=== PATIENT | female | born 1960 | race Two or more races ===

== ENCOUNTER 2025-06-22 08:42 | Inpatient (IN) | payer OTHER ==
[~2025-06-22] VITALS: Ht 152.4 cm; Wt 71.7 kg
--- NOTE | 2025-06-22 08:54 | NUR ---
PTE ALERTA Y ORIENTADA X3, REFIERE SER PTE DEL DR.MUNOZ FAY QUE LA ENVIO PARA ER PORQUE NO PUEDE ORINAR TEODORA Y TIENE DOLOR PELVICO. PTE REFIERE MICHAEL ESTADO TOMANDO ANTIBIOTICOS TALITA NO MICHAEL CROW. SE VINI SV Y SE UBICA.
[2025-06-22] MEDS ORDERED: PHENAZOPYRIDINE HCL 100 MG TABLET PO ONE ×2 (09:07→09:15)
[2025-06-22] MEDS ORDERED: 0.9 % SODIUM CHLORIDE 1,000 ML IV SCH ×2 (09:15→18:45)
--- NOTE | 2025-06-22 09:33 | NUR ---
SE ORIENTA PTE SOBRE TX A SEGUIR, LA MISMA REFIERE ENTENDER. SE GREG MUESTRA DE LAB, SE CANALIZA Y SE ADMINISTRA MED ISIDRO ORDEN MEDICA
[2025-06-22 09:35] LABS: BASO % 0.7 % (0.1-1.2); EOS # 0.13 (0.04-0.54); EOS % 1.7 % (0.7-7.0); LYMPH # 2.04 (1.18-3.74); LYMPH % 27.0 % (19.3-53.1); MEAN PLATELET VOLUME 9.90 fl (9.4-12.4); MONO # 0.34 (0.24-0.82); MONO % 4.5 % (4.7-12.5); NEUT # 4.99 (1.56-6.13); NEUT % 66.0 % (34.0-71.1); RED CELL DISTRIBUTION WIDTH 14.6 % (11.6-14.4)
[2025-06-22 10:17] LABS: URINE APPEARANCE Cloudy; URINE BILIRRUBIN Small (NEGATIVE); URINE BLOOD Negative; URINE COLOR Orange; URINE GLUCOSE Negative (NEGATIVE); URINE KETONE Trace (NEGATIVE); URINE LEUKOCYTE Moderate; URINE NITRATE Positive; URINE PROTEIN 30 (NEGATIVE); URINE UROBILINOGEN 1.0 E.U./dl
[2025-06-22 10:23] LABS: URINE BACTERIA 3409.1 uL (0.0-1933); URINE CAST 6.89 uL (0.0-1.40); URINE EPITHELIAL CELLS 44.4 uL (0.0-38.8); URINE RBC 11.2 uL (0.0-20.8); URINE WBC 237.8 uL (0.0-23.2)
[2025-06-22 10:41] LABS: BUN CREA RATIO 15.0 (7.0-25.0); CREATININE SERUM 0.97 mg/dL (0.55-1.02); GFR 57.63; GLUCOSE FASTING 96.0 mg/dL (65-100); OSMOLALITY SERUM 286.0 MOSM/KG (275-295)
[2025-06-22 11:26] LABS: URINE MUCUS MODERATE
[2025-06-22] MEDS ORDERED: MEROPENEM 1,000 MG VIAL IV ONE (12:00)
[2025-06-22] MEDS ORDERED: PHENAZOPYRIDINE HCL 100 MG TABLET PO SCH (18:34)
[2025-06-22] MEDS ORDERED: ACETAMINOPHEN 500 MG GEL..CAP PO PRN (18:45)
[2025-06-22] MEDS ORDERED: KETOROLAC TROMETHAMINE 15 MG VIAL IU ONE (18:45)
[2025-06-22 18:59] VITALS: BP 130/80
[2025-06-22 21:11] LABS: INR 0.94
[2025-06-22 22:02] VITALS: BP 105/66
[2025-06-23] VITALS (8 sets, daily range): BP systolic 95–154; BP diastolic 56–72; O2SAT 93–98
[2025-06-23] MEDS ORDERED: MEROPENEM 1,000 MG in 0.9 % SODIUM CHLORIDE 100 ML IV SCH (01:00)
[2025-06-23] MEDS ORDERED: MEROPENEM 500 MG in 0.9 % SODIUM CHLORIDE 50 ML IV SCH (08:00)
[2025-06-23] MEDS ORDERED: ROSUVASTATIN CALCIUM 10 MG TABLET PO SCH (09:00)
[2025-06-23] MEDS ORDERED: ENOXAPARIN SODIUM 40 MG/0.4 ML SYRINGE SUBCUTANEO SCH (09:00)
[2025-06-23] MEDS ORDERED: CLONAZEPAM 1 MG TABLET PO SCH (09:00)
[2025-06-23] MEDS ORDERED: LOSARTAN POTASSIUM 25 MG TABLET PO SCH (09:00)
[2025-06-23] MEDS ORDERED: ZOLPIDEM TARTRATE 10 MG TABLET PO SCH (21:00)
[2025-06-23] MEDS ORDERED: TAMSULOSIN HCL 0.4 MG CAP PO SCH (23:27)
[2025-06-24] VITALS (9 sets, daily range): BP systolic 94–104; BP diastolic 54–67; O2SAT 90–97
[2025-06-24] MEDS ORDERED: OXYBUTYNIN CHLORIDE 5 MG TABLET PO SCH (09:00)
[2025-06-25 02:04] VITALS: BP 109/69; O2SAT 98
[2025-06-25 03:39] VITALS: O2SAT 93
[2025-06-25 06:04] VITALS: O2SAT 90
[2025-06-25] MEDS ORDERED: LACTOBACILLUS ACIDOPHILUS 1 CAP CAP PO SCH (09:00)
[2025-06-25 09:05] VITALS: O2SAT 96
[2025-06-25 09:34] VITALS: BP 97/63; O2SAT 97
[2025-06-25] MEDS ORDERED: TAMS0.4C PO (10:10)
[2025-06-25] MEDS ORDERED: OXYBUTYNIN CHLOR5 MG PO (10:11)
[2025-06-25] MEDS ORDERED: INTESTINEX680 M1 PO (10:11)
[2025-06-25 12:27] VITALS: O2SAT 96
== END 2025-06-25 14:29 | disposition home or self-care (01) | DRG 690 ==
LOC: ER 08:42 → MEDI 19:24 → MEDJ 06-24 08:12
PROVIDERS: Emergency Medicine; General Practice; ADMIT Internal Medicine; ATTEND Internal Medicine
PROC: BW21ZZZ Computerized Tomography (CT Scan) of Abdomen and Pelvis (ICD-10-PCS; principal; 2025-06-22)
PROC: BW4GZZZ Ultrasonography of Pelvic Region (ICD-10-PCS; 2025-06-23)
PROC: 4A12X4Z Monitoring of Cardiac Electrical Activity, External Approach (ICD-10-PCS; 2025-06-23)
PROC: 8E0ZXY6 Isolation (ICD-10-PCS; 2025-06-24)
PROC: 02HV33Z Insertion of Infusion Device into Superior Vena Cava, Percutaneous Approach (ICD-10-PCS; 2025-06-24)
PROC: B548ZZA Ultrasonography of Superior Vena Cava, Guidance (ICD-10-PCS; 2025-06-24)
DX: N39.0 Urinary tract infection, site not specified (principal); N31.9 Neuromuscular dysfunction of bladder, unspecified; N83.292 Other ovarian cyst, left side; B96.20 Unspecified Escherichia coli [E. coli] as the cause of diseases classified elsewhere; I10 Essential (primary) hypertension; E11.9 Type 2 diabetes mellitus without complications; E78.5 Hyperlipidemia, unspecified